=== PATIENT | female | born 1950 | race Caucasian/White ===

== ENCOUNTER 2021-07-03 16:48 | Emergency (ER) | payer MEDICAID, SELFPAY ==
[2021-07-03] VITALS (7 sets, daily range): BP systolic 98–139; BP diastolic 47–59; PULSE 61–83; RESP 22; TEMP 37.1; O2SAT 97–100
[2021-07-03 18:12] LABS: Bacteria Urine Moderate (10-30); RBC Urine 30-100/HPF (0-5/HPF); Squamous Epithelial Cell Urine None Seen (0-5/HPF); Transitional Epi Cells Urine 1-5/HPF (0-5/HPF); WBC Urine >100/HPF (0-5/HPF)
--- NOTE | 2021-07-03 19:16 | ED.FEMALEGU ---
HPI - Female Genitourinary <Bong Romero PA-C - Last Filed: 07/03/21 20:58> General Chief complaint: Urogenital-Female Stated complaint: disorientation, +UTI, back pain Time Seen by Provider: 07/03/21 17:08 Source: patient and family Mode of arrival: Ambulatory History of Present Illness HPI Narrative: 71-year-old female with no reported past medical history presents to the emergency room with 10 days of dysuria, confusion. Patient is brought in by her and daughter, who states that patient has had dysuria, urgency, frequency and and worsening confusion over the last 10 days. Patient does not get frequent UTIs. Patient also complains of chills, flank pain, nausea. Patient denies fever, vomiting, chest pain, shortness of breath, abdominal pain, lightheadedness, dizziness, syncope. Patient started did a home urinary test which was positive. Related Data Allergies Allergy/AdvReac Type Severity Reaction Status Date / Time ceftriaxone Allergy Severe Swelling Verified 07/04/21 19:37 of Lip/Tongue/Throat Review of Systems <Bong Romero PA-C - Last Filed: 07/03/21 20:58> Review of Systems ROS Unobtainable: All systems reviewed & are unremarkable except as noted in HPI and below Constitutional Constitutional: Reports chills, Denies fatigue, Denies fever(s), Denies frequent falls, Denies lethargy and Denies weakness Eyes Eyes: Denies change in vision, Denies eye discharge, Denies irritation and Denies loss of vision ENT Ears, Nose, Mouth, and Throat: Denies change in voice, Denies dizziness, Denies neck pain, Denies sore throat and Denies throat swelling Cardiovascular Cardiovascular: Denies chest pain, Denies irregular heart rhythm, Denies lightheadedness, Denies palpitations, Denies dyspnea, Denies dyspnea on exertion and Denies orthopnea Respiratory Respiratory: Denies cough, Denies dyspnea, Denies dyspnea on exertion and Denies wheezing Gastrointestinal Gastrointestinal: Denies abdominal pain, Denies change in bowel habits, Denies diarrhea, Reports nausea and Denies vomiting Genitourinary Genitourinary: Denies hematuria, Reports dysuria, Denies flank pain, Denies urinary incontinence and Reports urinary urgency Comments: Flank pain, dysuria, urinary frequency Musculoskeletal Musculoskeletal: Denies back pain, Denies muscle weakness, Denies neck pain, Denies numbness and Denies tingling Integumentary/Breasts Skin/Breast: Denies pruritus, Denies erythema, Denies rash and Denies wounds Neurologic Neurologic: Denies behavioral changes, Reports confusion, Denies dizziness, Denies frequent falls, Denies loss of vision, Denies numbness, Denies tingling and Denies weakness Psychiatric Psychiatric: Denies anxiety, Denies behavioral changes, Reports confusion, Denies depression, Denies homicidal ideation and Denies suicidal ideation Endocrine Endocrine: Denies fatigue, Denies flushing and Denies palpitations Hematologic/Lymphatic Hematologic/Lymphatic: Denies easy bruising Allergic/Immunologic Allergic/Immunologic: Denies urticaria, Denies throat swelling and Denies wheezing Exam <Bong Romero PA-C - Last Filed: 07/03/21 20:58> Initial Vital Signs Initial Vital Signs: Vital Signs Temperature 98.8 F 07/03/21 16:52 Pulse Rate 83 07/03/21 16:52 Respiratory Rate 07/03/21 16:52 Blood Pressure 120/59 L 07/03/21 16:52 Pulse Oximetry 99 07/03/21 16:52 Const General: cooperative, healthy appearing and comfortable [facility] Head: normal to inspection Eyes General: appearance normal, both eyes and all related structures Neck Neck: normal visual inspection Chest Chest: normal inspection of the chest Resp Effort & Inspection: normal respiratory effort Auscultation: clear to auscultation bilaterally Cardio Rate: regular rate Rhythm: regular rhythm GI Other: Abdomen is soft, nondistended, nontender to palpation. Positive CVA tenderness bilaterally. General: CVA tenderness Back/Spine/Pelvis Back: normal to inspection Skin General: no rashes or lesions noted Neuro General: patient alert and patient awake Other: Patient appears confused. Psych Appearance: grossly normal Mental Status: mental status grossly normal <Luciano Mejia DO - Last Filed: 07/06/21 17:25> Initial Vital Signs Initial Vital Signs: Vital Signs Temperature 98.8 F 07/03/21 16:52 Pulse Rate 83 07/03/21 16:52 Respiratory Rate 22 07/03/21 16:52 Blood Pressure 120/59 L 07/03/21 16:52 Pulse Oximetry 99 07/03/21 16:52 <Zev Julian DO - Last Filed: 07/18/21 17:57> Initial Vital Signs Initial Vital Signs: Vital Signs Temperature 98.8 F 07/03/21 16:52 Pulse Rate 83 07/03/21 16:52 Respiratory Rate 22 07/03/21 16:52 Blood Pressure 120/59 L 07/03/21 16:52 Pulse Oximetry 99 07/03/21 16:52 Course <Bong Romero PA-C - Last Filed: 07/03/21 20:58> Orders Ordered: Discontinued Medications Sodium Chloride (Normal Saline 0.9%) 1,000 mls @ 1,000 mls/hr IV BOLUS ONE Stop: 07/03/21 20:22 Last Infusion: 07/03/21 21:31 Dose: 0 mls/hr Documented by: Admin: 07/03/21 19:58 Dose: 1,000 mls/hr Documented by: KPETERSON Ceftriaxone Sodium 1,000 mg/ (Sodium Chloride) 100 mls @ 200 mls/hr IV NOW ONE Stop: 07/03/21 20:39 Last Infusion: 07/03/21 21:35 Dose: 0 mls/hr Documented by: Admin: 07/03/21 20:54 Dose: 200 mls/hr Documented by: LLOYD Vital Signs Vital signs: Vital Signs - 8 hr 07/03/21 16:52 Temperature 98.8 F Pulse Rate 83 Respiratory Rate 22 Blood Pressure 120/59 L Pulse Oximetry 99 <Luciano Mejia DO - Last Filed: 07/06/21 17:25> Orders Ordered: Discontinued Medications Sodium Chloride (Normal Saline 0.9%) 1,000 mls @ 1,000 mls/hr IV BOLUS ONE Stop: 07/03/21 20:22 Last Infusion: 07/03/21 21:31 Dose: 0 mls/hr Documented by: Admin: 07/03/21 19:58 Dose: 1,000 mls/hr Documented by: KPETERSON Ceftriaxone Sodium 1,000 mg/ (Sodium Chloride) 100 mls @ 200 mls/hr IV NOW ONE Stop: 07/03/21 20:39 Last Infusion: 07/03/21 21:35 Dose: 0 mls/hr Documented by: Admin: 07/03/21 20:54 Dose: 200 mls/hr Documented by: LLOYD Vital Signs Vital signs: Vital Signs - 8 hr 07/03/21 16:52 Temperature 98.8 F Pulse Rate 83 Respiratory Rate 22 Blood Pressure 120/59 L Pulse Oximetry 99 <Zev Julian DO - Last Filed: 07/18/21 17:57> Orders Ordered: Discontinued Medications Sodium Chloride (Normal Saline 0.9%) 1,000 mls @ 1,000 mls/hr IV BOLUS ONE Stop: 07/03/21 20:22 Last Infusion: 07/03/21 21:31 Dose: 0 mls/hr Documented by: Admin: 07/03/21 19:58 Dose: 1,000 mls/hr Documented by: BANDAR Ceftriaxone Sodium 1,000 mg/ (Sodium Chloride) 100 mls @ 200 mls/hr IV NOW ONE Stop: 07/03/21 20:39 Last Infusion: 07/03/21 21:35 Dose: 0 mls/hr Documented by: Admin: 07/03/21 20:54 Dose: 200 mls/hr Documented by: LLOYD Vital Signs Vital signs: Vital Signs - 8 hr 07/03/21 16:52 Temperature 98.8 F Pulse Rate 83 Respiratory Rate 22 Blood Pressure 120/59 L Pulse Oximetry 99 MDM - Female Genitourinary <Bong Romero PA-C - Last Filed: 07/03/21 20:58> Lab Data Lab results narrative: Labs within normal limits. UA positive for UTI. Result diagrams: 07/03/21 19:54 07/03/21 19:54 Labs: Lab Results 07/03/21 07/03/21 07/03/21 Range/Units 17:41 19:54 19:54 WBC 12.2 H (4.5-11.0) X10^3/uL RBC 4.08 (4.0-5.2) X10^6/uL Hgb 11.8 L (12.0-16.0) g/dL Hct 35.8 L (36-46) % MCV 87.9 (80-100) fL MCH 28.8 (26-34) PG MCHC 32.8 (30-36) % RDW 13.5 (11.6-14.8) % Plt Count 256 (150-400) X10^3/uL Neut % (Auto) 78.5 H (50-75) % Lymph % (Auto) 13.5 L (25-40) % [place] % (Auto) 7.2 (3-14) % Eos % (Auto) 0.6 L (2-4) % Baso % (Auto) 0.2 (0-2) % Neut # (Auto) 9600 H (8954-1625) /uL Lymph # (Auto) 1700 (5563-5773) /uL [place] # (Auto) 900 (0-900) /uL Eos # (Auto) 100 (0-450) /uL Baso # (Auto) 0 (0-100) /uL Sodium 138 (137-145) mmol/L Potassium 3.9 (3.4-5.1) mmol/L Chloride 100 (98-107) mmol/L Carbon Dioxide 30 (22-32) mmol/L BUN 13 (7-17) mg/dL Creatinine 0.75 (0.52-1.04) mg/dL Estimated GFR > 60.0 (>60) mL/min BUN/Creatinine Ratio 17.3 (6-22) Glucose 93 (80-110) mg/dL Lactate (0.7-2.1) mmol/L Calcium 9.2 (8.4-10.2) mg/dL Total Bilirubin 0.3 (0.2-1.3) mg/dL AST 43 H (14-36) IU/L ALT 47 H (<35) IU/L Alkaline Phosphatase 78 (38-126) U/L Total Protein 7.0 (6.3-8.2) g/dL Albumin 4.0 (3.5-5.0) g/dL Globulin 3.0 (1.7-4.1) g/dL Albumin/Globulin Ratio 1.3 (1.0-2.8) Urine RBC 30-100/hpf H (0-5/HPF) Urine WBC >100/hpf H (0-5/HPF) Ur Squamous Epith Cells None seen (0-5/HPF) Ur Transition Epith Cell 1-5/hpf (0-5/HPF) Urine Bacteria Moderate (10-30) H (None) Ur Culture Indicated? Culture not indicate 07/03/21 Range/Units 19:54 WBC (4.5-11.0) X10^3/uL RBC (4.0-5.2) X10^6/uL Hgb (12.0-16.0) g/dL Hct (36-46) % MCV (80-100) fL MCH (26-34) PG MCHC (30-36) % RDW (11.6-14.8) % Plt Count (150-400) X10^3/uL Neut % (Auto) (50-75) % Lymph % (Auto) (25-40) % [place] % (Auto) (3-14) % Eos % (Auto) (2-4) % Baso % (Auto) (0-2) % Neut # (Auto) (5931-9800) /uL Lymph # (Auto) (2961-3551) /uL [place] # (Auto) (0-900) /uL Eos # (Auto) (0-450) /uL Baso # (Auto) (0-100) /uL Sodium (137-145) mmol/L Potassium (3.4-5.1) mmol/L Chloride (98-107) mmol/L Carbon Dioxide (22-32) mmol/L BUN (7-17) mg/dL Creatinine (0.52-1.04) mg/dL Estimated GFR (>60) mL/min BUN/Creatinine Ratio (6-22) Glucose (80-110) mg/dL Lactate 0.6 L (0.7-2.1) mmol/L Calcium (8.4-10.2) mg/dL Total Bilirubin (0.2-1.3) mg/dL AST (14-36) IU/L ALT (<35) IU/L Alkaline Phosphatase (38-126) U/L Total Protein (6.3-8.2) g/dL Albumin (3.5-5.0) g/dL Globulin (1.7-4.1) g/dL Albumin/Globulin Ratio (1.0-2.8) Urine RBC (0-5/HPF) Urine WBC (0-5/HPF) Ur Squamous Epith Cells (0-5/HPF) Ur Transition Epith Cell (0-5/HPF) Urine Bacteria (None) Ur Culture Indicated? Urine Dip Bedside Urine Glucose Negative Bedside Urine Bilirubin - Negative Bedside Urine Ketone - Negative Urine Specific [place] 1.025 Bedside Urine Occult Blood +++ Bedside Urine pH 6.0 Bedside Urine Protein + 30 Bedside Urine Urobilinogen - Negative Bedside Urine Nitrite + Positive Bedside Urine Leukocytes ++ 125 Esterase MDM Narrative Medical decision making narrative: 71-year-old female with no reported past medical history presents to the emergency room with 10 days of dysuria, confusion. Concern for UTI versus pyelonephritis versus sepsis versus metabolic derangements. Will order labs, lactate, UA. Will give some IV fluids. Will reassess. Labs within normal limits. UA positive for UTI. Will give 1 dose of IV ceftriaxone in the ED. Will discharge home with cefpodoxime. ED return precautions discussed with patient. Patient, patient's daughter, patient's verbalized understanding. <Luciano Mejia DO - Last Filed: 07/06/21 17:25> Lab Data Labs: Lab Results 07/03/21 07/03/21 07/03/21 Range/Units 17:41 19:54 19:54 WBC 12.2 H (4.5-11.0) X10^3/uL RBC 4.08 (4.0-5.2) X10^6/uL Hgb 11.8 L (12.0-16.0) g/dL Hct 35.8 L (36-46) % MCV 87.9 (80-100) fL MCH 28.8 (26-34) PG MCHC 32.8 (30-36) % RDW 13.5 (11.6-14.8) % Plt Count 256 (150-400) X10^3/uL Neut % (Auto) 78.5 H (50-75) % Lymph % (Auto) 13.5 L (25-40) % [place] % (Auto) 7.2 (3-14) % Eos % (Auto) 0.6 L (2-4) % Baso % (Auto) 0.2 (0-2) % Neut # (Auto) 9600 H (8340-7472) /uL Lymph # (Auto) 1700 (8168-4341) /uL [place] # (Auto) 900 (0-900) /uL Eos # (Auto) 100 (0-450) /uL Baso # (Auto) 0 (0-100) /uL Sodium 138 (137-145) mmol/L Potassium 3.9 (3.4-5.1) mmol/L Chloride 100 (98-107) mmol/L Carbon Dioxide 30 (22-32) mmol/L BUN 13 (7-17) mg/dL Creatinine 0.75 (0.52-1.04) mg/dL Estimated GFR > 60.0 (>60) mL/min BUN/Creatinine Ratio 17.3 (6-22) Glucose 93 (80-110) mg/dL Lactate (0.7-2.1) mmol/L Calcium 9.2 (8.4-10.2) mg/dL Total Bilirubin 0.3 (0.2-1.3) mg/dL AST 43 H (14-36) IU/L ALT 47 H (<35) IU/L Alkaline Phosphatase 78 (38-126) U/L Total Protein 7.0 (6.3-8.2) g/dL Albumin 4.0 (3.5-5.0) g/dL Globulin 3.0 (1.7-4.1) g/dL Albumin/Globulin Ratio 1.3 (1.0-2.8) Urine RBC 30-100/hpf H (0-5/HPF) Urine WBC >100/hpf H (0-5/HPF) Ur Squamous Epith Cells None seen (0-5/HPF) Ur Transition Epith Cell 1-5/hpf (0-5/HPF) Urine Bacteria Moderate (10-30) H (None) Ur Culture Indicated? Culture not indicate 07/03/21 Range/Units 19:54 WBC (4.5-11.0) X10^3/uL RBC (4.0-5.2) X10^6/uL Hgb (12.0-16.0) g/dL Hct (36-46) % MCV (80-100) fL MCH (26-34) PG MCHC (30-36) % RDW (11.6-14.8) % Plt Count (150-400) X10^3/uL Neut % (Auto) (50-75) % Lymph % (Auto) (25-40) % [place] % (Auto) (3-14) % Eos % (Auto) (2-4) % Baso % (Auto) (0-2) % Neut # (Auto) (5640-1503) /uL Lymph # (Auto) (5782-8834) /uL [place] # (Auto) (0-900) /uL Eos # (Auto) (0-450) /uL Baso # (Auto) (0-100) /uL Sodium (137-145) mmol/L Potassium (3.4-5.1) mmol/L Chloride (98-107) mmol/L Carbon Dioxide (22-32) mmol/L BUN (7-17) mg/dL Creatinine (0.52-1.04) mg/dL Estimated GFR (>60) mL/min BUN/Creatinine Ratio (6-22) Glucose (80-110) mg/dL Lactate 0.6 L (0.7-2.1) mmol/L Calcium (8.4-10.2) mg/dL Total Bilirubin (0.2-1.3) mg/dL AST (14-36) IU/L ALT (<35) IU/L Alkaline Phosphatase (38-126) U/L Total Protein (6.3-8.2) g/dL Albumin (3.5-5.0) g/dL Globulin (1.7-4.1) g/dL Albumin/Globulin Ratio (1.0-2.8) Urine RBC (0-5/HPF) Urine WBC (0-5/HPF) Ur Squamous Epith Cells (0-5/HPF) Ur Transition Epith Cell (0-5/HPF) Urine Bacteria (None) Ur Culture Indicated? Urine Dip Bedside Urine Glucose Negative Bedside Urine Bilirubin - Negative Bedside Urine Ketone - Negative Urine Specific [place] 1.025 Bedside Urine Occult Blood +++ Bedside Urine pH 6.0 Bedside Urine Protein + 30 Bedside Urine Urobilinogen - Negative Bedside Urine Nitrite + Positive Bedside Urine Leukocytes ++ 125 Esterase MDM Narrative Medical decision making narrative: 71-year-old female with no reported past medical history presents to the emergency room with 10 days of dysuria, confusion. Concern for UTI versus pyelonephritis versus sepsis versus metabolic derangements. Will order labs, lactate, UA. Will give some IV fluids. Will reassess. Labs within normal limits. UA positive for UTI. Will give 1 dose of IV ceftriaxone in the ED. Will discharge home with cefpodoxime. ED return precautions discussed with patient. Patient, patient's daughter, patient's verbalized understanding. 1724 - urine cx and sensitivity suggests sensitivity to cefpodoxime, patient reached at home, has had no allergic type symptoms. They are in route to a follow-up appointment. Encouraged to stop taking this particular antibiotic given its relation to ceftriaxone and switch antibiotics. Despite this discussion they prefer to discuss with her doctor. We have attempted to call the clinic and will fax the culture and sensitivity. <Zev Julian DO - Last Filed: 07/18/21 17:57> Lab Data Labs: Lab Results 07/03/21 07/03/21 07/03/21 Range/Units 17:41 19:54 19:54 WBC 12.2 H (4.5-11.0) X10^3/uL RBC 4.08 (4.0-5.2) X10^6/uL Hgb 11.8 L (12.0-16.0) g/dL Hct 35.8 L (36-46) % MCV 87.9 (80-100) fL MCH 28.8 (26-34) PG MCHC 32.8 (30-36) % RDW 13.5 (11.6-14.8) % Plt Count 256 (150-400) X10^3/uL Neut % (Auto) 78.5 H (50-75) % Lymph % (Auto) 13.5 L (25-40) % [place] % (Auto) 7.2 (3-14) % Eos % (Auto) 0.6 L (2-4) % Baso % (Auto) 0.2 (0-2) % Neut # (Auto) 9600 H (2170-1654) /uL Lymph # (Auto) 1700 (1358-1637) /uL [place] # (Auto) 900 (0-900) /uL Eos # (Auto) 100 (0-450) /uL Baso # (Auto) 0 (0-100) /uL Sodium 138 (137-145) mmol/L Potassium 3.9 (3.4-5.1) mmol/L Chloride 100 (98-107) mmol/L Carbon Dioxide 30 (22-32) mmol/L BUN 13 (7-17) mg/dL Creatinine 0.75 (0.52-1.04) mg/dL Estimated GFR > 60.0 (>60) mL/min BUN/Creatinine Ratio 17.3 (6-22) Glucose 93 (80-110) mg/dL Lactate (0.7-2.1) mmol/L Calcium 9.2 (8.4-10.2) mg/dL Total Bilirubin 0.3 (0.2-1.3) mg/dL AST 43 H (14-36) IU/L ALT 47 H (<35) IU/L Alkaline Phosphatase 78 (38-126) U/L Total Protein 7.0 (6.3-8.2) g/dL Albumin 4.0 (3.5-5.0) g/dL Globulin 3.0 (1.7-4.1) g/dL Albumin/Globulin Ratio 1.3 (1.0-2.8) Urine RBC 30-100/hpf H (0-5/HPF) Urine WBC >100/hpf H (0-5/HPF) Ur Squamous Epith Cells None seen (0-5/HPF) Ur Transition Epith Cell 1-5/hpf (0-5/HPF) Urine Bacteria Moderate (10-30) H (None) Ur Culture Indicated? Culture not indicate 07/03/21 Range/Units 19:54 WBC (4.5-11.0) X10^3/uL RBC (4.0-5.2) X10^6/uL Hgb (12.0-16.0) g/dL Hct (36-46) % MCV (80-100) fL MCH (26-34) PG MCHC (30-36) % RDW (11.6-14.8) % Plt Count (150-400) X10^3/uL Neut % (Auto) (50-75) % Lymph % (Auto) (25-40) % [place] % (Auto) (3-14) % Eos % (Auto) (2-4) % Baso % (Auto) (0-2) % Neut # (Auto) (3849-8035) /uL Lymph # (Auto) (1951-2075) /uL [place] # (Auto) (0-900) /uL Eos # (Auto) (0-450) /uL Baso # (Auto) (0-100) /uL Sodium (137-145) mmol/L Potassium (3.4-5.1) mmol/L Chloride (98-107) mmol/L Carbon Dioxide (22-32) mmol/L BUN (7-17) mg/dL Creatinine (0.52-1.04) mg/dL Estimated GFR (>60) mL/min BUN/Creatinine Ratio (6-22) Glucose (80-110) mg/dL Lactate 0.6 L (0.7-2.1) mmol/L Calcium (8.4-10.2) mg/dL Total Bilirubin (0.2-1.3) mg/dL AST (14-36) IU/L ALT (<35) IU/L Alkaline Phosphatase (38-126) U/L Total Protein (6.3-8.2) g/dL Albumin (3.5-5.0) g/dL Globulin (1.7-4.1) g/dL Albumin/Globulin Ratio (1.0-2.8) Urine RBC (0-5/HPF) Urine WBC (0-5/HPF) Ur Squamous Epith Cells (0-5/HPF) Ur Transition Epith Cell (0-5/HPF) Urine Bacteria (None) Ur Culture Indicated? Urine Dip Bedside Urine Glucose Negative Bedside Urine Bilirubin - Negative Bedside Urine Ketone - Negative Urine Specific [place] 1.025 Bedside Urine Occult Blood +++ Bedside Urine pH 6.0 Bedside Urine Protein + 30 Bedside Urine Urobilinogen - Negative Bedside Urine Nitrite + Positive Bedside Urine Leukocytes ++ 125 Esterase Discharge Plan Departure Patient Disposition: Home Clinical Impression: Pyelonephritis Instructions: DI for Kidney Infection, DI for Urinary Tract Infection (UTI) Activity Restrictions/Additional Instructions: You were evaluated in the ED today for urinary symptoms. Your urinalysis shows an infection, for which you have been started on antibiotics. You got your 1st dose of IV antibiotic in the ED. You have been prescribed oral antibiotics for the rest of the course. Please complete the full course of antibiotics. Return to the ED if your symptoms worsen, you develop a fever, chills, worsened confusion. <Zve Julian, DO - Last Filed: 07/18/21 17:57> [facility] Dr Julian Co-Sign Statement: I was available for consultation during this patient's emergency department visit. This chart is signed by myself for administrative purposes only. I did not have direct contact with this patient during this visit. They were seen independently by the APC.
[2021-07-03] MEDS: SODIUM CHLORIDE 0.9% 1,000 ML 1000 ML IV (19:58)
[2021-07-03 20:10] LABS: Add Manual Diff / Slide Review NO; Basophils Absolute Auto 0 /uL (0-100); Basophils Percent Auto 0.2 % (0-2); Eosinophils Absolute Auto 100 /uL (0-450); Eosinophils Percent Auto 0.6 % (2-4); Hematocrit 35.8 % (36-46); Hemoglobin 11.8 g/dL (12.0-16.0); Lymphocytes Absolute Auto 1700 /uL (1100-4500); Lymphocytes Percent Auto 13.5 % (25-40); Mean Corpuscular HGB Conc 32.8 % (30-36); Mean Corpuscular Hemoglobin 28.8 PG (26-34); Mean Corpuscular Volume 87.9 fL (80-100); Monocytes Absolute Auto 900 /uL (0-900); Monocytes Percent Auto 7.2 % (3-14); Neutrophils Absolute Auto 9600 /uL (1500-7000); Neutrophils Percent Auto 78.5 % (50-75); Platelet Count 256 X10^3/uL (150-400); Red Blood Cell Count 4.08 X10^6/uL (4.0-5.2); Red Cell Distribution Width 13.5 % (11.6-14.8); White Blood Cell Count 12.2 X10^3/uL (4.5-11.0)
[2021-07-03 20:23] LABS: Lactate (Lactic Acid) 0.6 mmol/L (0.7-2.1)
[2021-07-03 20:25] LABS: Alanine Aminotransferase 47 IU/L (<35); Albumin Globulin Ratio 1.3 (1.0-2.8); Alkaline Phosphatase 78 U/L (38-126); Aspartate Aminotransferase 43 IU/L (14-36); BUN Creatinine Ratio 17.3 (6-22); Bilirubin Total 0.3 mg/dL (0.2-1.3); Blood Urea Nitrogen 13 mg/dL (7-17); Calcium 9.2 mg/dL (8.4-10.2); Carbon Dioxide 30 mmol/L (22-32); Chloride 100 mmol/L (98-107); Estimated Glomerular Filt Rate > 60.0 mL/min (>60); Glucose 93 mg/dL (80-110); HEMOLYSIS < 15 (0-50); Potassium 3.9 mmol/L (3.4-5.1); Sodium 138 mmol/L (137-145)
[2021-07-03] MEDS: cefTRIAXone 1,000 MG in SODIUM CHLORIDE 0.9% 100 ML 200 ML IV (20:54)
== END 2021-07-03 21:55 | disposition home or self-care (01) ==
PROVIDERS: Emergency Provider Student in an Organized Health Care Education/Training Program
DX: N12 Tubulo-interstitial nephritis, not specified as acute or chronic (principal); Z88.1 Allergy status to other antibiotic agents
CPT/HCPCS: 36415; 80053; 81003; 81015; 83605; 85025; 87040; 87077; 87086; 87186; 96361; 96365; 99283; 99284; J0696

== ENCOUNTER → 2025-01-27 06:24 | Outpatient (ROUT) | payer SELFPAY ==
[2025-01-27 08:38] LABS: Hematocrit 36.2 % (36-46); Hemoglobin 12.3 g/dL (12.0-16.0); Mean Corpuscular HGB Conc 34.1 % (30-36); Mean Corpuscular Hemoglobin 28.2 PG (26-34); Mean Corpuscular Volume 82.8 fL (80-100); Platelet Count 252 X10^3/uL (150-400)
[2025-01-27 08:51] LABS: Hemoglobin A1C% w Est Avg Glu 5.4 % (4.0-6.0)
[2025-01-27 08:52] LABS: Blood Urea Nitrogen 14 mg/dL (7-17); Calcium 8.8 mg/dL (8.4-10.2); Carbon Dioxide 24 mmol/L (22-32); Chloride 108 mmol/L (98-107); Cholesterol 214 mg/dL (140-199); Estimated Glomerular Filt Rate > 60 mL/min (>60); Glucose 93 mg/dL (70-99); HDL Cholesterol 32 mg/dL (40-60); HEMOLYSIS < 15 (0-50); Potassium 3.8 mmol/L (3.4-5.1); Sodium 138 mmol/L (137-145); Triglycerides 156 mg/dL (35-150)
[2025-01-27 08:55] LABS: Iron 50 ug/dL (37-170)
[2025-01-27 09:13] LABS: Free T4, Direct Thyroxine 1.32 ng/dL (0.78-2.19)
[2025-01-27 09:26] LABS: Ferritin 60 ng/mL (11-264)
[2025-01-27 09:27] LABS: Thyroid Stimulating Hormone 2.68 uIU/mL (0.47-4.68)
[2025-01-27 10:03] LABS: Folate 3.4 ng/mL (2.76-20.0); Vitamin B12 609 pg/mL (239-931)
== END ==
PROVIDERS: Visit Provider Registered Nurse
DX: F50.83 Pica in adults (principal); R73.03 Prediabetes; E78.5 Hyperlipidemia, unspecified; E06.3 Autoimmune thyroiditis
CPT/HCPCS: 36415; 80048; 80061; 82607; 82728; 82746; 83036; 83540; 84439; 84443; 85027